=== PATIENT | female | born 2000 | race Caucasian/White ===

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

== ENCOUNTER 2018-02-14 17:17 | Emergency (ER) | payer BC ==
[2018-02-14] MEDS ORDERED: NS 500 ML IV ONE (17:37)
[2018-02-14] MEDS ORDERED: FAMOTIDINE 20 MG/NACL 50 ML IV ONE (17:37)
--- NOTE | 2018-02-14 17:41 | EDPHY ---
H & P Time Seen by Provider: 02/14/18 17:30 HPI/ROS: CHIEF COMPLAINT: Abdominal pain HISTORY OF PRESENT ILLNESS: Patient is a 17-year-old female presents emergency department with generalized lower abdominal pain. Patient's symptoms started roughly 10 days ago. She has had mild lower abdominal cramping sensation. She had a few episodes of nonbloody diarrhea. No fevers, nausea or vomiting. Patient has no dysuria frequency. Patient is currently taking control pills. Last menstrual period was 02/08/2018. Patient states she has previously been in the emergency department for abdominal discomfort. She was diagnosed with constipation. REVIEW OF SYSTEMS: 10 systems were reveiwed and are negative with the exception of the elements mentioned in the history of present illness. Past Medical/Surgical History: Includes CRPS, sports induced asthma, attention deficit hyperactivity disorder Past surgical history: Negative Social history: The patient does not smoke Smoking Status: Never smoked Physical Exam: Vitals noted GENERAL: Well-appearing, in no acute distress, alert. HEENT: Eyes normal to inspection, normal pharynx, no signs of dehydration. NECK: Normal, supple. RESPIRATORY: Clear to auscultation bilaterally, no rales, rhonchi or wheezing. CVS: Regular rate and rhythm, no rubs, murmurs, or gallops. ABDOMEN: Soft, nontender, nondistended, no organomegaly. Benign BACK: Normal to inspection, no CVA tenderness. SKIN: Normal color, no rash, warm, dry. No pallor. EXTREMITIES: No pedal edema, no calf tenderness, no joint swelling. NEURO/PSYCH: Alert and oriented, normal mood and affect, normal motor sensory exam. Constitutional: Initial Vital Signs Temperature (C) 36.6 C 02/14/18 17:21 Heart Rate 94 02/14/18 17:21 Respiratory Rate 16 02/14/18 17:21 Blood Pressure 118/85 H 02/14/18 17:21 O2 Sat (%) 98 02/14/18 17:21 O2 Delivery Mode Room Air Allergies/Adverse Reactions: No Known Allergies Allergy (Verified 02/14/18 17:25) Home Medications: Medication Instructions Recorded Control Pills 05/10/16 Cephalexin [Keflex (*)] 500 mg PO QID #12 cap 02/14/18 Medical Decision Making ED Course/Re-evaluation: The in the emergency department I discussed possible etiologies with the patient and her mother. I answered all her questions. IV was placed. Laboratory studies were obtained. CBC is unremarkable. Patient has normal white count. Patient's urine is positive for bacteria, leuk esterase and white cells. I discussed the result with the patient. I answered all her questions. Patient was given Keflex. I gave the patient warnings prior to leaving. She will return with worsening symptoms. Differential Diagnosis: My differential includes but is not limited to small-bowel obstruction, perforation, constipation, urinary tract infection, pyelonephritis, , ectopic , STD - Data Points Laboratory Results: Laboratory Results 02/14/18 17:30 02/14/18 02/14/18 02/14/18 17:30 17:30 17:30 WBC RBC Hgb Hct MCV MCH MCHC RDW Plt Count MPV Neut % (Auto) Lymph % (Auto) [place] % (Auto) Eos % (Auto) Baso % (Auto) Nucleat RBC Rel Count Absolute Neuts (auto) Absolute Lymphs (auto) Absolute Monos (auto) Absolute Eos (auto) Absolute Basos (auto) Absolute Nucleated RBC Immature Gran % Immature Gran # Sodium Pending Potassium Pending Chloride Pending Carbon Dioxide Pending Anion Gap Pending BUN Pending Creatinine Pending Estimated GFR Pending Glucose Pending Calcium Pending Total Bilirubin Pending Conjugated Bilirubin Pending Unconjugated Bilirubin Pending AST Pending ALT Pending Alkaline Phosphatase Pending Total Protein Pending Albumin Pending Lipase Pending Beta HCG, Qual Pending Urine Color YELLOW Urine Appearance HAZY Urine pH 6.0 (5.0-7.5) Ur Specific [place] 1.015 (1.002-1.030) Urine Protein NEGATIVE (NEGATIVE) Urine Ketones NEGATIVE (NEGATIVE) Urine Blood 2+ H (NEGATIVE) Urine Nitrate NEGATIVE (NEGATIVE) Urine Bilirubin NEGATIVE (NEGATIVE) Urine Urobilinogen NEGATIVE EU EU (0.2-1.0) Ur Leukocyte Esterase 2+ H (NEGATIVE) Urine RBC 1-3 /hpf /hpf (0-3) Urine WBC 10-15 /hpf H /hpf (0-3) Ur Epithelial Cells 2+ /lpf H /lpf (NONE-1+) Urine Bacteria 4+ /hpf H /hpf (NONE SEEN) Urine Mucus TRACE /lpf /lpf (NONE-1+) Urine Glucose NEGATIVE (NEGATIVE) 12/03/18 17:30 WBC 8.75 10^3/uL 10^3/uL (3.80-9.50) RBC 5.11 10^6/uL 10^6/uL (4.18-5.33) Hgb 14.6 g/dL g/dL (12.6-16.3) Hct 43.5 % % (38.0-47.0) MCV 85.1 fL fL (81.5-99.8) MCH 28.6 pg pg (27.9-34.1) MCHC 33.6 g/dL g/dL (32.4-36.7) RDW 12.1 % % (11.5-15.2) Plt Count 354 10^3/uL 10^3/uL (150-400) MPV 9.6 fL fL (8.7-11.7) Neut % (Auto) 57.3 % % (39.3-74.2) Lymph % (Auto) 31.5 % % (15.0-45.0) [place] % (Auto) 7.8 % % (4.5-13.0) Eos % (Auto) 2.5 % % (0.6-7.6) Baso % (Auto) 0.7 % % (0.3-1.7) Nucleat RBC Rel Count 0.0 % % (0.0-0.2) Absolute Neuts (auto) 5.01 10^3/uL 10^3/uL (1.70-6.50) Absolute Lymphs (auto) 2.76 10^3/uL 10^3/uL (1.00-3.00) Absolute Monos (auto) 0.68 10^3/uL 10^3/uL (0.30-0.80) Absolute Eos (auto) 0.22 10^3/uL 10^3/uL (0.03-0.40) Absolute Basos (auto) 0.06 10^3/uL 10^3/uL (0.02-0.10) Absolute Nucleated RBC 0.00 10^3/uL 10^3/uL (0-0.01) Immature Gran % 0.2 % % (0.0-1.1) Immature Gran # 0.02 10^3/uL 10^3/uL (0.00-0.10) Sodium Potassium Chloride Carbon Dioxide Anion Gap BUN Creatinine Estimated GFR Glucose Calcium Total Bilirubin Conjugated Bilirubin Unconjugated Bilirubin AST ALT Alkaline Phosphatase Total Protein Albumin Lipase Beta HCG, Qual Urine Color Urine Appearance Urine pH Ur Specific [place] Urine Protein Urine Ketones Urine Blood Urine Nitrate Urine Bilirubin Urine Urobilinogen Ur Leukocyte Esterase Urine RBC Urine WBC Ur Epithelial Cells Urine Bacteria Urine Mucus Urine Glucose Medications Given: Discontinued Medications Sodium Chloride (Ns) 500 mls @ 0 mls/hr IV EDNOW ONE; Wide Open PRN Reason: Protocol Stop: 02/14/18 17:38 Last Admin: 02/14/18 17:50 Dose: 500 mls Famotidine/Sodium Chloride (Pepcid 20 Mg (Premix)) 50 mls @ 200 mls/hr IV EDNOW ONE Stop: 02/14/18 17:51 Last Admin: 02/14/18 17:50 Dose: 50 mls Departure - Departure Disposition: Home, Routine, Self-Care Clinical Impression: Abdominal pain Qualifiers: Abdominal location: lower abdomen, unspecified Qualified Code(s): R10.30 - Lower abdominal pain, unspecified Urinary tract infection Qualifiers: Urinary tract infection type: acute cystitis Hematuria presence: without hematuria Qualified Code(s): N30.00 - Acute cystitis without hematuria Condition: Good Instructions: Acute Abdominal Pain (ED), Urinary Tract Infection in Women (ED) Additional Instructions: Return with increasing pain, fever, or any other concerns. Referrals: Cathleen Cerna NP [Primary Care Provider] - 3-4 days, if not improved Prescriptions: Cephalexin [Keflex (*)] 500 mg PO QID #12 cap
[2018-02-14 18:01] LABS: PLATELET COUNT 354 10^3/uL (150-400)
[2018-02-14] MEDS ORDERED: CEPHALEXIN 500MG PREPACK#4 BTL TAKEHOME ONE (18:31)
[2018-02-14 18:58] VITALS: BP 118/74
== END 2018-02-14 19:03 | disposition home or self-care (01) ==
DX: N30.00 Acute cystitis without hematuria (principal); E86.9 Volume depletion, unspecified
CPT/HCPCS: 96365